=== PATIENT | male | born 1950 | race Caucasian/White ===

== ENCOUNTER 2016-10-13 14:17 | Emergency (ER) | payer BC ==
[~2016-10-13] VITALS: Ht 180.3 cm; Wt 72.6 kg
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
[~2016-10-13 14:17] MED LIST: CELEBREX400 MG PO; POTASSIUM1 UDCAP.SA PO; TRAMADOL HCL100 MG; ULTRAM PO; [UNRECOGNIZED DRUG - OTHER] PO
== END 2016-10-13 16:35 | disposition home or self-care (01) ==
LOC: CFTX 14:17 → CED 14:17 → CFTX 16:26
DX: S46.911A Strain of unspecified muscle, fascia and tendon at shoulder and upper arm level, right arm, initial encounter (principal); S40.811A Abrasion of right upper arm, initial encounter; S20.412A Abrasion of left back wall of thorax, initial encounter; Z88.5 Allergy status to narcotic agent; V29.9XXA Motorcycle rider (driver) (passenger) injured in unspecified traffic accident, initial encounter
CPT/HCPCS: 73000; 73030; 99283